=== PATIENT | male | born 1955 | race Caucasian/White ===

== ENCOUNTER 2019-07-09 14:30 | Outpatient (CLI) | payer OTHER ==
[2019-07-09 14:36] LABS: BASOPHILS % 0.4 % (0.0-1.5); NEUTROPHILS # 5.1 # k/uL (1.4-7.7)
[2019-07-09 14:45] LABS: eGFR (Non-African) > 60
== END 2019-07-09 14:33 ==
LOC: LABRHC 14:30
PROVIDERS: ATTEND Family Medicine
DX: J34.1 Cyst and mucocele of nose and nasal sinus (principal)
CPT/HCPCS: 36415; 80053; 85025

== ENCOUNTER 2019-10-19 13:44 | Outpatient (CLI) | payer OTHER ==
--- NOTE | 2019-10-21 19:07 | Diagnostic Imaging Report ---
PATIENT MR#: [id number] PATIENT PATIENT NAME: TREV VASQUEZ DATE OF : 1955 REFERRING PHYSICIAN: Kal Coronado EXAM DATE: 10/19/2019 ACCESSION NUMBER: [id number] EXAM DESCRIPTION: CT CHEST W/O CONT CA S CLINICAL HISTORY: PANLOBULAR EMPHYSEMA; HX COPD, ASTHMA AND BRONCHITIS, SMOKER TECHNIQUE: Low dose CT chest without contrast. COMPARISON: No pertinent prior studies are available at this time. CT CHEST WITHOUT CONTRAST: Lungs: Hyperinflation of COPD. Severe diffuse emphysema. Right upper lobe spiculated nodule measurin g 7 x 8 x 6 mm. Superior right lower lobe elongated nodule measuring 5 x 14 x 6 mm, with evidence of early pleural te thering. Scattered small calcified granulomas. No infiltrate, pneumothorax or effusion. Heart: Normal size. No significant effusion. Aorta: Normal caliber. Mediastinum and armin: No significant lymphadenopathy allowing for limitation of noncontrast technique . Bony thorax: No acute findings. Limited upper abdomen: No acute findings. IMPRESSION: Two spiculated nodular lesions of the right upper lobe (8 mm) and superior segment right lower lobe ( 14 mm), which are suspicious for neoplasm. Lung-RADS score 4A. ACR guidelines recommend follow-up Low Dose CT in 3 months to assess for interval change. If interval growth is demonstrated on follow-up exam, PET/CT or biopsy is recommended. Read by: Dr. Leif French Transcribed by: Leif French Transcribed Date: 10/21/2019 7:05:48 PM Electronically signed by: Dr. Leif French Date signed: 10/21/2019 7:06:05 PM
== END 2019-10-19 13:54 ==
LOC: RAD 13:44
PROVIDERS: ATTEND Family Medicine
DX: Z12.2 Encounter for screening for malignant neoplasm of respiratory organs (principal); J43.1 Panlobular emphysema
CPT/HCPCS: G0297